=== PATIENT | female | born 1965 | race African-American/Black ===

== ENCOUNTER → 2021-05-22 | Outpatient (CLI) | payer OTHER ==
--- NOTE | 2021-05-22 08:44 | RAD ---
EXAM: Abdomen sonogram. HISTORY: Elevated liver enzyme laboratory values. TECHNIQUE: Sonographic imaging of the abdomen was performed. COMPARISON: None. FINDINGS: The liver is enlarged. No focal hepatic lesion is seen. There is no convincing hepatic stea tosis. There is a large stone within the gallbladder fundus. There is no evidence of cholecystitis. T he common bile duct is normal in caliber. The right kidney, pancreas, aorta and vena cava are unremar kable. IMPRESSION: 1. Hepatomegaly. 2. Large gallstone. No convincing superimposed cholecystitis. Electronically signed by: Gianna Cody MD (05/22/2021 8:41 AM) [id number]
== END ==
LOC: US 07:51
PROVIDERS: ATTEND Physician Assistant Medical
DX: R16.0 Hepatomegaly, not elsewhere classified (principal); K80.80 Other cholelithiasis without obstruction
CPT/HCPCS: 76705